=== PATIENT | female | born 1990 | race Caucasian/White ===

== ENCOUNTER 2018-07-14 09:48 | Inpatient (IN) | payer OTHER ==
[2018-07-14] MEDS ORDERED: Sodium Chloride 0.9% 10 ML Syringe FLUSH PRN (10:01)
[2018-07-14] MEDS ORDERED: Nalbuphine 20 MG/ML 1 ML Syringe IVPUSH PRN (10:01)
[2018-07-14] MEDS ORDERED: Ondansetron 4 MG/2 ML SDV IVPUSH PRN ×2 (10:01→12:00)
[2018-07-14] MEDS ORDERED: Oxytocin/Lactated Ringers 10 UNIT/1,000 ML BAG IV SCH ×2 (10:15)
[2018-07-14] MEDS: Lactated Ringers 1,000 ML IV SCH ×2 (11:18→20:20)
[2018-07-14] MEDS ORDERED: fentaNYL/Bupivacaine-NS 2 MCG/ML-0.125%/PF 100 ML Bag EP SCH (12:00)
[2018-07-14] MEDS ORDERED: ePHEDrine 50 MG/ML SDV IVPUSH PRN (12:00)
[2018-07-14] MEDS ORDERED: fentaNYL 100 MCG/2 ML SDV EPIDUR PRN (12:00)
--- NOTE | 2018-07-14 12:02 | PCM.PREANE ---
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), Sinus Problem (seasonal allergies) - Physical Assessment NPO Status Date: 07/14/18 NPO Status Time: 12:30 Pulse: 75 O2 Sat by Pulse Oximetry: 99 Respiratory Rate: 14 Blood Pressure: 118/79 Temperature: 36.4 C Vital Signs: Last Vital Signs Temp 36.4 C 07/14/18 10:01 Pulse 75 07/14/18 10:01 Resp 14 07/14/18 10:01 BP 118/74 07/14/18 10:01 Pulse Ox Height: 1.63 m Weight: 83.915 kg ASA Class: 2 Mental Status: Alert & Oriented x3 Airway Class: Mallampati = 2 Dentition: Reports: Normal Dentition, Caries Thyro-Mental Finger Breadths: 3 Mouth Opening Finger Breadths: 3 ROM/Head Extension: Full Lungs: Clear to Auscultation, Normal Respiratory Effort Cardiovascular: Regular Rate, Regular Rhythm, No Murmurs - Lab Values: Laboratory Last Values WBC 8.96 K/mm3 (3.98-10.04) 07/14/18 10:40 RBC 4.29 M/mm3 (3.98-5.22) 07/14/18 10:40 Hgb 13.1 gm/L (11.2-15.7) 07/14/18 10:40 Hct 38.8 % (34.1-44.9) 07/14/18 10:40 MCV 90.4 fl (79.4-94.8) 07/14/18 10:40 MCH 30.5 pg (25.6-32.2) 07/14/18 10:40 MCHC 33.8 g/dl (32.2-35.5) 07/14/18 10:40 RDW Std Deviation 41.9 fL (36.4-46.3) 07/14/18 10:40 Plt Count 248 K/mm3 (182-369) 07/14/18 10:40 MPV 9.8 fl (9.4-12.3) 07/14/18 10:40 Neut % (Auto) 68.7 % (34.0-71.1) 07/14/18 10:40 Lymph % (Auto) 20.9 % (19.3-51.7) 07/14/18 10:40 [place] % (Auto) 8.3 % (4.7-12.5) 07/14/18 10:40 Eos % (Auto) 1.6 (0.7-5.8) 07/14/18 10:40 Baso % (Auto) 0.1 % (0.1-1.2) 07/14/18 10:40 Neut # (Auto) 6.16 K/mm3 (1.56-6.13) H 07/14/18 10:40 Lymph # (Auto) 1.87 K/mm3 (1.18-3.74) 07/14/18 10:40 [place] # (Auto) 0.74 K/mm3 (0.24-0.36) H 07/14/18 10:40 Eos # (Auto) 0.14 K/mm3 (0.04-0.36) 07/14/18 10:40 Baso # (Auto) 0.01 K/mm3 (0.01-0.08) 07/14/18 10:40 Above labs reviewed and noted and within acceptable ranges to proceed with epidural if desired. - Allergies Allergies/Adverse Reactions: Allergies Allergy/AdvReac Type Severity Reaction Status Date / Time amoxicillin [Amoxicillin] Allergy Blurred Verified 11/25/13 18:13 Vision cefaclor [From Ceclor] Allergy Blurred Verified 11/25/13 18:13 Vision Sulfa (Sulfonamide Allergy Blurred Verified 11/25/13 18:13 Antibiotics) Vision - Anesthesia Plan Pre-Op Medication Ordered: None - Acknowledgements Anesthesia Type Planned: Epidural Pt an Appropriate Candidate for the Planned Anesthesia: Yes Alternatives and Risks of Anesthesia Discussed w Pt/Guardian: Yes Pt/Guardian Understands and Agrees with Anesthesia Plan: Yes PreAnesthesia Questionnaire - Past Health History Medical/Surgical History: Denies Medical/Surgical History - CURRENT (IN HOUSE) MEDS Current Meds: Current Medications Lactated Ringer's (Ringers, Lactated) 1,000 mls @ 100 mls/hr IV ASDIRECTED CLAUDY Last Admin: 07/14/18 11:18 Dose: 100 mls/hr Oxytocin/Lactated Ringer's (Pitocin In Lr 10 Units/1,000 Ml) 10 unit in 1,000 mls @ 12 mls/hr IV TITRATE CLAUDY; Protocol Last Admin: 07/14/18 11:19 Dose: 2 munits/min, 12 mls/hr Oxytocin/Lactated Ringer's (Pitocin In Lr 10 Units/1,000 Ml) 10 unit in 1,000 mls @ 500 mls/hr IV .CONTINUOUS CLAUDY Vancomycin HCl 1 gm/ Sodium (Chloride) 250 mls @ 250 mls/hr IV Q12H [facility] Last Admin: 07/14/18 11:31 Dose: 250 mls/hr Nalbuphine HCl (Nubain) 10 mg IVPUSH Q2H PRN PRN Reason: pain Ondansetron HCl (Zofran) 4 mg IVPUSH Q4H PRN PRN Reason: Nausea/Vomiting Sodium Chloride (Saline Flush) 10 ml FLUSH ASDIRECTED PRN PRN Reason: Keep Vein Open Discontinued Medications Vancomycin HCl 1 gm/ Sodium (Chloride) 250 mls @ 250 mls/hr IV Q12H CLAUDY
[2018-07-14] MEDS ORDERED: Scopolamine 1.5 MG Transdermal Patch TRDERM PRN (12:47)
[2018-07-15] MEDS: Lactated Ringers 1,000 ML IV SCH (01:20)
[2018-07-15] MEDS ORDERED: Lidocaine 1.5% with EPINEPHrine 1:200,000 5 ML Amp ONE (04:00)
[2018-07-15] MEDS ORDERED: Bupivacaine 0.25% 10 ML SDV ONE (04:00)
--- NOTE | 2018-07-15 06:48 | PCM.SN ---
- Free Text/Narrative Note: Delivery note: Radha is a 28-year-old 1 now para 1001 white female who was admitted on 07/14/2018 at 39-1/7 weeks gestational age with an ASHLEY of 07/20/2018. She was admitted with reported decreased activity. She was evaluated in clinic and had a nonreactive NST. Patient reported decreased activity one other time during the course of the week and evaluation showed a reactive NST. She was also noted to be josefina every 1-3 minutes. There were mild in nature. Decision was made to admit patient and to proceed to effect delivery. She was started on Pitocin and then underwent artificial rupture membranes augmentation. Minimal clear fluid was noted at the time rupture membranes. Patient proceeded to complete cervical dilation by approximately 0200 hrs. on 07/15/2018. She had had an epidural placed for analgesia. Patient proceeded to push for approximately the next 3 hours. Brought the head down to about 0 station to +1 station. heart tones remained reassuring throughout labor course. Patient began to become fatigued and decision was made to proceed with vacuum extraction delivery. The vacuum extraction delivery, its alternatives, its procedure, risks, benefits, limitations and follow-up were all discussed with patient including potential injury to the baby and mom. She appeared to understand and wish to proceed. Vacuum extractor was placed and 0514 hours on 07/15/2018 she delivered a viable, zhu, male named vanessa Shine in a direct occiput posterior position. She had a third-degree laceration. There was terminal meconium noted after the baby delivered. Nuchal cord 1 was reduced over the baby's body. The umbilical cord appeared to be very thin. Baby weighed 3010 g (6 pounds 10.2 ounces). At the time of delivery and the cord was clamped 2 and was cut by the baby's father. The baby was placed in the warmer and was evaluated. Apgars were 7 and 9. Cord blood was obtained. The third-degree laceration was repaired in routine fashion using 3-0 Monocryl reapproximating the anal sphincter and then closing the capsule over it. The remainder of the repair was consistent with second- degree laceration. After repair of the laceration a rectal exam was done and there was no evidence of fourth degree laceration. Patient tolerated procedure well and the epidural placed for analgesia worked well for repair anesthesia. The placenta delivered at 0527 hrs. in a [place] presentation, was meconium- stained, appeared intact and complete and was discarded per patient desire. The umbilical cord had 3 vessels. Estimated blood loss was 100 mL. Condition: Good. Patient plans to breast-feed.
[2018-07-15] MEDS ORDERED: Acetaminophen 325 MG Tab PO PRN (07:31)
[2018-07-15] MEDS ORDERED: Benzocaine/Menthol 20%-0.5% Spray 56 GM Canister TOP PRN (07:31)
[2018-07-15] MEDS ORDERED: Lanolin 100% Cream 7 GM Tube TOP PRN (07:31)
[2018-07-15] MEDS ORDERED: Witch Hazel Medicated Pads 100/Jar TOP PRN (07:31)
[2018-07-15] MEDS: Ibuprofen 600 MG Tab PO PRN ×3 (11:05→19:57)
[2018-07-15] MEDS: Prenatal Multivitamin with Calcium/Folic Acid/Iron Tab PO SCH (11:06)
[2018-07-15] MEDS: Docusate Sodium 100 MG Cap PO SCH ×3 (11:06→20:03)
--- NOTE | 2018-07-15 16:59 | PCM48HPAN ---
Post Anesthesia Note - EVALUATION WITHIN 48HRS OF ANESTHETIC Vital Signs in Normal Range: Yes Patient Participated in Evaluation: Yes Respiratory Function Stable: Yes Airway Patent: Yes Cardiovascular Function Stable: Yes Hydration Status Stable: Yes Pain Control Satisfactory: Yes Nausea and Vomiting Control Satisfactory: Yes Mental Status Recovered: Yes
[2018-07-16] MEDS: Ibuprofen 600 MG Tab PO PRN ×2 (05:03→10:29)
[2018-07-16] MEDS: Docusate Sodium 100 MG Cap PO SCH (08:39)
--- NOTE | 2018-07-16 10:21 | PCM.DCSUM1 ---
Discharge Summary - Hospital Course Free Text/Narrative:: Radha is a 28-year-old 1 now para 1001 white female who was admitted on 07/14/2018 at 39-1/7 weeks gestational age with an ASHLEY of 07/20/2018. She was admitted with reported decreased activity. She was evaluated in clinic and had a nonreactive NST. Patient reported decreased activity one other time during the course of the week and evaluation showed a reactive NST. She was also noted to be josefina every 1-3 minutes. There were mild in nature. Decision was made to admit patient and to proceed to effect delivery. She was started on Pitocin and then underwent artificial rupture membranes augmentation. Minimal clear fluid was noted at the time rupture membranes. Patient proceeded to complete cervical dilation by approximately 0200 hrs. on 07/15/2018. She had had an epidural placed for analgesia. Patient proceeded to push for approximately the next 3 hours. Brought the head down to about 0 station to +1 station. heart tones remained reassuring throughout labor course. Patient began to become fatigued and decision was made to proceed with vacuum extraction delivery. The vacuum extraction delivery, its alternatives, its procedure, risks, benefits, limitations and follow-up were all discussed with patient including potential injury to the baby and mom. She appeared to understand and wish to proceed. Vacuum extractor was placed and 0514 hours on 07/15/2018 she delivered a viable, zhu, male infant named vanessa Shine in a direct occiput posterior position. She had a third-degree laceration. There was terminal meconium noted after the baby delivered. Nuchal cord 1 was reduced over the baby's body. The umbilical cord appeared to be very thin. Baby weighed 3010 g (6 pounds 10.2 ounces). At the time of delivery and the cord was clamped 2 and was cut by the baby's father. The baby was placed in the warmer and was evaluated. Apgars were 7 and 9. Cord blood was obtained. The third-degree laceration was repaired in routine fashion using 3-0 Monocryl reapproximating the anal sphincter and then closing the capsule over it. The remainder of the repair was consistent with second- degree laceration. After repair of the laceration a rectal exam was done and there was no evidence of fourth degree laceration. Patient tolerated procedure well and the epidural placed for analgesia worked well for repair anesthesia. The placenta delivered at 0527 hrs. in a [place] presentation, was meconium- stained, appeared intact and complete and was discarded per patient desire. The umbilical cord had 3 vessels.Estimated blood loss was 100 mL. patient is done very well. She is breast-feeding without problems, she is ambulating well. She is started on Colace for stool softeners because of the third-degree perineal laceration. She is aware that she needs to keep her stool soft. She is desiring discharge home. Diagnosis: Stroke: No - Discharge Data Discharge Date: 07/16/18 Discharge Disposition: Home, Self-Care 01 Condition: Good - Patient Instructions Diet: Regular Diet as Tolerated (Nursing diet with increased calories and calcium is recommended.) Activity: As Tolerated (No intercourse or tampons until bleeding resolves) Driving: May Drive Today Showering/Bathing: May Shower (May take a bath) Notify Provider of: Fever, Increased Pain, Swelling and Redness, Nausea and/or Vomiting - Discharge Plan Home Medications: Home Meds L.acidoph,Paracasei, B.lactis [Probiotic] 1 tab PO DAILY 07/14/18 [History] [id number]/Iron Fumarate/FA/DSS [ 19 Tablet] 1 tab PO DAILY 07/14/18 [ History] Acetaminophen [Tylenol] 650 mg PO Q4H PRN tablet 07/16/18 [Rx] Docusate Sodium [Colace] 100 mg PO BID cap 07/16/18 [Rx] Ibuprofen [Motrin] 600 mg PO Q4H PRN tablet 07/16/18 [Rx] Patient Handouts: Home Care Instructions for Mom, Eating Plan for Women - Discharge Summary/Plan Comment DC Time >30 min.: No Discharge Summary/Plan Comment: Discharge instructions: 1. Discharge home 2. Diet, activity and follow-up discussed with patient. Recommend nursing diet with increased calories and calcium. 3. Precautions given concern increased pain, bleeding, temperature, signs/ symptoms of DVT/PE. 4. Medications per home medication was printed, discussed with and given to the patient. 5. Return to clinic-Dr. Harmon[facility] in 3 weeks. Diagnosis: Term -delivered Condition: Good - Patient Data Vitals - Most Recent: Last Vital Signs Temp 36.4 C 07/16/18 08:18 Pulse 68 07/16/18 08:18 Resp 16 07/16/18 08:18 BP 102/57 L 07/16/18 08:18 Pulse Ox 98 07/16/18 08:18 Weight - Most Recent: 83.915 kg I&O - Last 24 hours: Intake & Output 07/15/18 07/16/18 07/16/18 21:59 06:59 14:59 Intake Total 360 Output Total 400 Balance -40 Med Orders - Current: Current Medications Acetaminophen (Tylenol) 650 mg PO Q4H PRN PRN Reason: mild pain or fever Benzocaine/Menthol (Dermoplast Pain Relief [place]) 0 gm TOP ASDIRECTED PRN PRN Reason: Perineal Comfort Measure Last Admin: 07/15/18 08:24 Dose: 1 can Docusate Sodium (Colace) 100 mg PO BID [facility] Last Admin: 07/16/18 08:39 Dose: 100 mg Emollient Ointment (Lansinoh Hpa) 0 gm TOP ASDIRECTED PRN PRN Reason: Sore Nipples Ibuprofen (Motrin) 600 mg PO Q4H PRN PRN Reason: Mild pain or fever Last Admin: 07/16/18 05:03 Dose: 600 mg Prenat Multivit/[place]/Iron/Folic Ac ( Plus Iron) 1 each PO DAILY [facility] Last Admin: 07/15/18 11:06 Dose: Not Given Witch Hoa (Tucks) 1 pad TOP ASDIRECTED PRN PRN Reason: Hemorrhoid pain Last Admin: 07/15/18 08:24 Dose: 1 tub Discontinued Medications Bupivacaine HCl (Sensorcaine-Mpf 0.25%) 10 ml .ROUTE .STK-MED ONE Stop: 07/15/18 04:01 Ephedrine Sulfate (Ephedrine Sulfate) 5 mg IVPUSH ASDIRECTED PRN PRN Reason: Hypotension Fentanyl (Sublimaze) 100 mcg EPIDUR Q3H PRN PRN Reason: Pain Last Admin: 07/14/18 20:28 Dose: 100 mcg Fentanyl/Bupivacaine HCl (Vaxpgrgr-Tlwhl-Tz 2 Mcg/Ml-0.125%) 100 ml EP ASDIRECTED [facility] Last Admin: 07/14/18 20:28 Dose: 100 ml Lactated Ringer's (Ringers, Lactated) 1,000 mls @ 100 mls/hr IV ASDIRECTED CLAUDY Last Admin: 07/15/18 01:20 Dose: 100 mls/hr Oxytocin/Lactated Ringer's (Pitocin In Lr 10 Units/1,000 Ml) 10 unit in 1,000 mls @ 12 mls/hr IV TITRATE CLAUDY; Protocol Last Titration: 07/15/18 04:55 Dose: 4 munits/min, 24 mls/hr Oxytocin/Lactated Ringer's (Pitocin In Lr 10 Units/1,000 Ml) 10 unit in 1,000 mls @ 500 mls/hr IV .CONTINUOUS CLAUDY Last Admin: 07/15/18 05:15 Dose: 500 mls/hr Vancomycin HCl 1 gm/ Sodium (Chloride) 250 mls @ 250 mls/hr IV Q12H CLAUDY Vancomycin HCl 1 gm/ Sodium (Chloride) 250 mls @ 250 mls/hr IV Q12H [facility]UDY Last Admin: 07/14/18 23:07 Dose: 250 mls/hr Lidocaine/Epinephrine (Xylocaine-Mpf 1.5% W/Epinephrine 1:200,000) 5 ml .ROUTE .STK-MED ONE Stop: 07/15/18 04:01 Nalbuphine HCl (Nubain) 10 mg IVPUSH Q2H PRN PRN Reason: pain Ondansetron HCl (Zofran) 4 mg IVPUSH Q4H PRN PRN Reason: Nausea/Vomiting Last Admin: 07/14/18 23:00 Dose: 4 mg Ondansetron HCl (Zofran) 4 mg IVPUSH ONETIME PRN PRN Reason: Nausea/Vomiting Stop: 07/14/18 20:00 Scopolamine (Transderm-Scop) 1.5 mg TRDERM ONETIME PRN PRN Reason: PONV Sodium Chloride (Saline Flush) 10 ml FLUSH ASDIRECTED PRN PRN Reason: Keep Vein Open
[2018-07-16] MEDS: Prenatal Multivitamin with Calcium/Folic Acid/Iron Tab PO SCH (12:18)
--- NOTE | 2018-07-17 07:02 | HP ---
DATE OF ADMISSION: 07/14/2018 ADMISSION DIAGNOSES: 39-1/7th week intrauterine , decreased activity, early labor. HISTORY OF PRESENT ILLNESS: The patient is a 28-year-old, 1, para 0, white female, who has an ASHLEY of 07/20/2018, placing her at 39-1/7th weeks' gestational age. Her ASHLEY is determined by certain last menstrual period which started on 10/13/2017 and is supported by 3 ultrasounds during the course of the taken placed on 12/29/2017, 02/07/2018, and 03/16/2018. She was seen in clinic today prior to admission to Labor and Delivery and found to have decreased activity. NST was not reactive at that time, but the patient was noted to have contractions every 3 minutes and did not have any deceleration, therefore, had a negative contraction stress test. She is sent to Labor and Delivery with reported decreased activity, but with what appears to be early labor. Her cervix on last evaluation in clinic was approximately 1 to 2 cm, very posterior, approximately 60% effaced and soft. The baby is in vertex presentation. COURSE: The patient was seen for her first visit at 11 weeks. Her weight gain was from 168.8 pounds to 187 pounds for approximately a 19-pound weight gain. Her fundal height growth was appropriate. The patient has had some bacterial vaginosis which was treated in . She declined genetic testing. She is group B strep positive, she has history of Zackery's disease. She had her Tdap vaccination administered on 06/05/2018. She has had her flu shot in February 2018. MMR shows that she is rubella immune. She has had her hepatitis B vaccinations in 2002. She also had meningeal conical vaccinations on 02/15/2007. LABORATORY DATA: Shows her blood to be A positive with negative antibody screen. First hemoglobin was 12.9 g/dL. Platelets were 324,000. She is rubella immune. RPR is nonreactive. Hepatitis B surface antigen and HIV assays were both negative. Her GC and chlamydia were both negative. Her TSH on 12/29/2017 was normal at 1.370. Second trimester laboratory testing showed hemoglobin at 12.0 g/dL. Her platelet count was 292,000 and her diabetic screen test was 144. Her RPR was repeated on 04/14/2018 and was nonreactive. Group B strep screen was positive. Her hemoglobin A1c was 4.9, as the patient refused to do 3-hour GTT and hemoglobin A1c was done instead. This was within normal limits. ALLERGIES: 1. Sulfa drugs which give her hives. 2. Bactrim tabs which give her hives. 3. Ceclor caps, which gave her hives. 4. Penicillin, including Augmentin, which gives her hives and nausea respectively. 5. The patient also has seasonal allergies. PAST MEDICAL HISTORY: Patient had abnormal Pap smear with resulted in a LEEP procedure in 2009. PAST SURGICAL HISTORY: 1. Tonsillectomy with adenoid ectopy. 2. Thyroglossal duct cyst removal. FAMILY HISTORY: Mother is alive and well as is her father. One sister is alive and well. Maternal grandfather's medical history uncertain. Maternal grandmother had thyroid issues and is on medication and is a smoker. Paternal grandfather is alive and well but is a smoker. Paternal grandmother is alive, has allergies and is a smoker. There is no family history of cancer, bleeding or blood clotting issues. Mother does have some issues with anesthesia. SOCIAL HISTORY: The patient is . is Parvez Tay. 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 She is a college graduate. She lives in [place], [place]. She does not use any significant amounts of alcohol, drugs, or tobacco. REVIEW OF SYSTEMS: GENERAL: The patient is having contractions, but is still very comfortable with them. HEENT, NECK, AND BACK: Negative. CARDIOVASCULAR: No chest pain or exercise intolerance. LUNGS: No shortness of breath or infectious symptoms. BREASTS: Changes associated with . The patient does plan to breast feed. GI: Negative. : Increased size of the uterus secondary to . EXTREMITIES: Negative. NEUROLOGICAL: Negative. PHYSICAL EXAMINATION: VITAL SIGNS: On last evaluation in clinic, her weight was 187. Pregravid weight was 168.8. Her height is 5 feet 5 inches, blood pressure on last evaluation was 118/70. heart rate was 110 to 115 on monitoring. Her pregravid body mass index was 26.6. GENERAL: The patient is a well-developed, well-nourished, pleasant female, stated age, in no acute distress. SKIN: Warm, dry, without lesions. HEENT: Within normal limits. NECK: Within normal limits. BACK: Within normal limits. LUNGS: Clear with good breath sounds in all lung hall. BREAST: Deferred at this time. ABDOMEN: Shows fundal height consistent with term at 39 weeks. Baby in vertex presentation. CERVIX: As above. EXTREMITIES AND NEUROLOGIC: Trace edema, otherwise unremarkable. ASSESSMENT: 1. 39-05/15 week intrauterine , reported decreased activity on 2 occasions in the last week. Non-reassuring NST but negative PUBLIC WELFARE DIRECTOR in clinic. Heart rate between 110 and 120 on the average. 2. Probable early labor. Patient josefina every 3 minutes, but still mild. 3. Group B strep positive - first dose of antibiotics given. 4. The patient would like to do natural labor but is not totally against epidural. 5. RPR nonreactive. 6. Rubella titer shows immunity. 7. The patient is Rh-positive. 8. The patient plans to breastfeed. PLAN: 1. Anticipate . 2. We will augment with Pitocin as indicated. 3. Group B strep prophylaxis per protocol. 4. Anticipate normal spontaneous vaginal delivery. MMODAL /[id number]
== END 2018-07-16 13:30 | disposition home or self-care (01) | DRG 768 ==
LOC: JD.OBCHECK 09:48 → JD.OB 09:50 → JD.OBCHECK 10:01 → JD.OB 10:01 → OBSVTOIN 07-15 05:14 → JD.OB 07-15 05:15
PROVIDERS: ADMIT Obstetrics & Gynecology; ATTEND Obstetrics & Gynecology
PROC: 10907ZC Drainage of Amniotic Fluid, Therapeutic from Products of Conception, Via Natural or Artificial Opening (ICD-10-PCS; principal; 2018-07-15)
PROC: 0DQR0ZZ Repair Anal Sphincter, Open Approach (ICD-10-PCS; principal; 2018-07-15)
PROC: 6A550ZT Pheresis of Cord Blood Stem Cells, Single (ICD-10-PCS; principal; 2018-07-15)
PROC: 10D07Z6 Extraction of Products of Conception, Vacuum, Via Natural or Artificial Opening (ICD-10-PCS; principal; 2018-07-15)
PROC: 00HU33Z Insertion of Infusion Device into Spinal Canal, Percutaneous Approach (ICD-10-PCS; 2018-07-15)
PROC: 3E0R3BZ Introduction of Anesthetic Agent into Spinal Canal, Percutaneous Approach (ICD-10-PCS; 2018-07-15)
DX: O36.8130 Decreased fetal movements, third trimester, not applicable or unspecified (principal); Z37.0 Single live birth; O75.81 Maternal exhaustion complicating labor and delivery; O64.0XX0 Obstructed labor due to incomplete rotation of fetal head, not applicable or unspecified; O77.0 Labor and delivery complicated by meconium in amniotic fluid; O70.20 Third degree perineal laceration during delivery, unspecified; O69.81X0 Labor and delivery complicated by cord around neck, without compression, not applicable or unspecified; O69.89X0 Labor and delivery complicated by other cord complications, not applicable or unspecified; O99.824 Streptococcus B carrier state complicating childbirth; O99.284 Endocrine, nutritional and metabolic diseases complicating childbirth; E06.3 Autoimmune thyroiditis; Z3A.39 39 weeks gestation of pregnancy; O99.62 Diseases of the digestive system complicating childbirth; K21.9 Gastro-esophageal reflux disease without esophagitis; Z88.1 Allergy status to other antibiotic agents; Z88.0 Allergy status to penicillin; Z88.2 Allergy status to sulfonamides
CPT/HCPCS: 36415; 51701; 51702; 59025; 59409; 85025; 86592; A9270-GY; J2405; J2590; J3010; J3370; J3490; J7050; J7120